=== PATIENT | female | born 1985 | race Hispanic/Latino ===

== ENCOUNTER 2019-12-18 08:02 | Outpatient (CLI) | payer OTHER ==
--- NOTE | 2019-12-18 10:59 | ULT ---
OB ULTRASOUND GREATER THAN 14 WEEKS: Date: 12/18/2019 HISTORY: Anatomy evaluation. FINDINGS: Single, viable intrauterine fetus is noted in breech presentation. The placenta is posterior. No evid ence for placenta previa. Cervical length is 3.8 cm. Amniotic fluid index is 15.7 cm with normal amni otic fluid. heart rate of 140 bpm. Anatomy: Visualized brain, four chamber heart, three vessel cord, stomach, bladder, kidneys, spine, and extremities regions are unremarkable. Biometry: BPD: 4.4 cm - 19 weeks 3 days HC: 17.4 cm - 20 weeks 0 days AC: 15.6 cm - 20 weeks 6 days FL: 3.3 cm - 20 weeks 3 days IMPRESSION: 1. Single, viable intrauterine fetus at 20 weeks and 2days. 2. RAHUL of 05/04/2020. 3. Estimated weight is 355 gm. POS: [facility]
== END 2019-12-18 08:03 | disposition home or self-care (01) ==
LOC: BICULT 08:02
PROVIDERS: ATTEND Family Medicine
DX: Z34.82 Encounter for supervision of other normal pregnancy, second trimester (principal); Z3A.20 20 weeks gestation of pregnancy
CPT/HCPCS: 76805

== ENCOUNTER 2020-04-22 11:18 | Outpatient (CLI) | payer OTHER ==
[2020-04-23 15:35] LABS: SARS-CoV-2 MS2 Positive; SARS-CoV-2 N Gene Negative; SARS-CoV-2 S Gene Negative; SARS-CoV-2 by NAA Not Detected (NotDetected); SARS-CoV-2 orf1ab Negative
== END 2020-04-22 11:19 | disposition home or self-care (01) ==
LOC: LABBT 11:18
PROVIDERS: ATTEND Family Medicine
DX: Z20.828 Contact with and (suspected) exposure to other viral communicable diseases (principal)
CPT/HCPCS: 87635; U0003

== ENCOUNTER 2020-04-24 19:15 | Inpatient (IN) | payer MEDICAID, OTHER, SELFPAY ==
[~2020-04-24 19:15] MED LIST: Bupivacaine 0.25% HCL 30 ML VIAL ONE
[2020-04-24 21:18] VITALS: BMI 27.6
[2020-04-24] MEDS: Lactated Ringer's 1,000 ML IV SCH (21:38)
[2020-04-24] MEDS ORDERED: hydrALAZINE 20 MG/ML VIAL SLOW IVP PRN (21:57)
[2020-04-24] MEDS ORDERED: HYDROcodone/Acetaminophen 5/325 mg Tablet PO PRN (21:57)
[2020-04-24] MEDS ORDERED: Diphenoxylate HCl/Atropine Tablet PO PRN (21:57)
[2020-04-24] MEDS ORDERED: Misoprostol 200 MCG TAB PR PRN (21:57)
[2020-04-24] MEDS ORDERED: Lidocaine 1% (PF) 30 ML VIAL SC PRN (21:57)
[2020-04-24] MEDS ORDERED: Butorphanol Tartrate 1 MG/ML VIAL SLOW IVP PRN (21:57)
[2020-04-24] MEDS ORDERED: NS / Oxytocin 40 units/1000ml 1,000 ML IV PRN (21:57)
[2020-04-24] MEDS ORDERED: Carboprost 250 MCG/ML AMP IM PRN (21:57)
[2020-04-24] MEDS ORDERED: Ondansetron PF 4 MG/2 ML Vial IVP PRN (21:57)
[2020-04-24] MEDS ORDERED: Ibuprofen 800 MG TAB PO PRN (21:57)
[2020-04-24] MEDS ORDERED: Promethazine HCl 25 MG/ML VIAL IM PRN (21:57)
[2020-04-24] MEDS ORDERED: Methylergonovine 0.2 MG/ML VIAL IM PRN (21:57)
[2020-04-24] MEDS ORDERED: Penicillin G 2.5 MILL.units 2.5 MILL.UNITS in Premix Bag 1 BAG IVPB SCH (22:00)
[2020-04-24] MEDS ORDERED: NS w/ Oxytocin 10 units 500 ML IV SCH ×2 (22:00)
[2020-04-24] MEDS ORDERED: Penicillin G Potassium 5 MILL.UNITS in Sodium Chloride 0.9% 100 ML IVPB SCH (22:00)
[2020-04-24] MEDS: Misoprostol 100 MCG TAB PO SCH (22:18)
[2020-04-24 22:46] LABS: Hemoglobin 11.4 g/dL (12.0-16.0); Mean Corpuscular HGB CONC 33.9 g/dL (32.0-36.0); Mean Corpuscular Hemoglobin 30.6 pg (27.0-31.0); Mean Corpuscular Volume 90.2 fL (78.0-98.0); Mean Platelet Volume 10.7 fL (7.4-10.4); Platelet Count 173 thou/uL (130-400); RBC Distribution Width 12.5 % (11.5-14.5); Red Blood Cell (RBC) Count 3.74 mill/uL (4.20-5.40)
[2020-04-24 23:16] LABS: Syphilis Antibody Nonreactive (Nonreactive); Syphilis Antibody Index 0.02 S/CO (<1.00 Non-Reactive)
[2020-04-25 00:01] LABS: HBSAg Index 0.16 S/CO (0-0.99); Hep B Surf Ag Non-Reactive S/CO (NonReactive)
[2020-04-25] MEDS: Lactated Ringer's 1,000 ML IV SCH ×3 (01:05→08:43)
[2020-04-25] MEDS: Misoprostol 100 MCG TAB PO SCH ×3 (01:45→08:45)
[2020-04-25] MEDS ORDERED: Fentanyl 4 mcg/Bup 0.1% Cadd 100 ML ONE (07:09)
[2020-04-25] MEDS ORDERED: Promethazine HCl 25 MG/ML VIAL IM PRN (08:29)
[2020-04-25] MEDS ORDERED: diphenhydrAMINE 50 MG/ML VIAL IVP PRN (08:29)
[2020-04-25] MEDS ORDERED: Ondansetron PF 4 MG/2 ML Vial IVP PRN ×2 (08:29→14:21)
[2020-04-25] MEDS ORDERED: Acetaminophen 325 MG TAB PO PRN (08:29)
[2020-04-25] MEDS ORDERED: Naloxone HCl 0.4 mg/ml Vial IVP PRN ×2 (08:29)
[2020-04-25] MEDS ORDERED: Lactated Ringer's 500 ML IV PRN (08:29)
[2020-04-25] MEDS ORDERED: ePHEDrine 50 MG/ML VIAL SLOW IVP PRN (08:29)
[2020-04-25] MEDS ORDERED: Communication Order-Pharmacy FS SCH (08:30)
[2020-04-25] MEDS ORDERED: Fentanyl 4 mcg/Bupivacaine 0.1% Cassette 100 ML EPIDURAL SCH (08:30)
[2020-04-25] MEDS ORDERED: FLU VACC QS2020-21(6MOS UP)/PF 60 MCG/0.5 ML SYRINGE IM ONE (09:00)
[2020-04-25] MEDS ORDERED: Lidocaine 1% (PF) 30 ML VIAL ONE (11:40)
[2020-04-25] MEDS ORDERED: NS / Oxytocin 40 units/1000ml 1,000 ML ONE (11:40)
[2020-04-25] MEDS ORDERED: Milk Of Magnesia 30 ML UDCUP PO PRN (14:21)
[2020-04-25] MEDS ORDERED: Lanolin Ointment 7 GM TUBE TOP PRN (14:21)
[2020-04-25] MEDS ORDERED: hydrALAZINE 20 MG/ML VIAL SLOW IVP PRN (14:21)
[2020-04-25] MEDS ORDERED: HYDROcodone/Acetaminophen 5/325 mg Tablet PO PRN ×2 (14:21)
[2020-04-25] MEDS ORDERED: Benzocaine-Menthol 82.5 ML CAN TOP PRN (14:21)
[2020-04-25] MEDS ORDERED: Adacel (T-DAP) 0.5 ML SYRINGE IM ONE (14:21)
[2020-04-25] MEDS ORDERED: NS / Oxytocin 40 units/1000ml 1,000 ML IV SCH (14:21)
[2020-04-25] MEDS ORDERED: diphenhydrAMINE 25 MG CAP PO PRN (14:21)
[2020-04-25] MEDS ORDERED: Bisacodyl 10 MG SUPP PR PRN (14:21)
[2020-04-25] MEDS ORDERED: Ondansetron PF 4 MG/2 ML Vial ONE (14:39)
[2020-04-25] MEDS: Ibuprofen 800 MG TAB PO SCH ×2 (16:50→21:55)
[2020-04-25] MEDS: Ferrous Sulfate 325 MG TAB PO SCH (16:51)
[2020-04-25] MEDS: Docusate Calcium (SURFAK) 240 MG CAP PO SCH (21:56)
[2020-04-26] MEDS: Ibuprofen 800 MG TAB PO SCH ×2 (04:59→14:07)
[2020-04-26] MEDS: Docusate Calcium (SURFAK) 240 MG CAP PO SCH (08:31)
[2020-04-26] MEDS: Ferrous Sulfate 325 MG TAB PO SCH (08:33)
[2020-04-26] MEDS ORDERED: Prenatal Vitamin 1 TAB PO SCH (09:00)
[2020-04-26 11:50] VITALS: BP 109/61; TEMP 98.9
== END 2020-04-26 14:45 | disposition home or self-care (01) | DRG 807 ==
LOC: L&D 20:32 → 3SW 04-25 15:27
PROVIDERS: ADMIT Family Medicine; ATTEND Family Medicine
PROC: 10E0XZZ Delivery of Products of Conception, External Approach (ICD-10-PCS; principal; 2020-04-25)
PROC: 0HQ9XZZ Repair Perineum Skin, External Approach (ICD-10-PCS; 2020-04-25)
DX: O70.0 First degree perineal laceration during delivery (principal); Z37.0 Single live birth; Z3A.40 40 weeks gestation of pregnancy; Z20.828 Contact with and (suspected) exposure to other viral communicable diseases
CPT/HCPCS: 36415; 51702; 76815; 85027; 86780; 86850; 86900; 86901; 87340; J2405; J2590; S0020